=== PATIENT | male | born 1960 | race Caucasian/White ===

== ENCOUNTER 2018-10-08 14:09 | Emergency (ER) | payer OTHER ==
[~2018-10-08] VITALS: Ht 185.4 cm; Wt 99.8 kg
[~2018-10-08 14:09] MED LIST: AMLODIPINE BESY10 MG PO; COZAAR50 MG PO; FLOVENT DISKUS50 MCG INH; GEMFIBROZIL600 MG PO; HARVONI 90-4001 EACH PO; KEFLEX500 MG PO; LIPITOR10 MG; LISINOPRIL20 MG PO; METFORMIN HCL850 MG PO; PRILOSEC OTC20 MG PO; RIBASPHERE400 MG PO; TOPROL XL50 MG PO; ZANTAC150 MG PO; ZOFRAN4 MG PO; ZYRTEC10 MG PO
[2018-10-08] MEDS ORDERED: SUMATRIPTAN SUC25 MG PO (14:45)
[2018-10-08] MEDS ORDERED: ARNUITY ELLIPT50 MCG NAS (14:46)
== END 2018-10-08 17:59 | disposition short-term general hospital (02) ==
LOC: ED 14:09
DX: S06.5X9A Traumatic subdural hemorrhage with loss of consciousness of unspecified duration, initial encounter (principal); X58.XXXA Exposure to other specified factors, initial encounter; I10 Essential (primary) hypertension; E11.9 Type 2 diabetes mellitus without complications; Z87.891 Personal history of nicotine dependence; Z79.899 Other long term (current) drug therapy; Z79.84 Long term (current) use of oral hypoglycemic drugs
CPT/HCPCS: 70450; 80053; 85025; 85610; 85730; 99285-25

== ENCOUNTER 2019-12-16 11:42 | Emergency (ER) | payer OTHER ==
[~2019-12-16] VITALS: Ht 185.4 cm; Wt 99.8 kg
--- OUTSIDE RECORDS SUMMARY | ~2019-12-16 | XMS | Clinical Summary ---
Demographics + + + | Address | [address] | | | [place] [address] | + + + | Home Phone | | + + + | Preferred Language | Unknown | + + + | Marital Status | Single | + + + | [employer] Affiliation | Unknown | + + + | Race | Unknown | + + + | Ethnic Group | Unknown | + + + Author + + + | Author | [facility] (Historical as of | | | 03-30-19) | + + + | Organization | [facility] (Historical as of | | | 03-30-19) | + + + | Address | Unknown | + + + | Phone | Unavailable | + + + Support + + +---------+ + | Name | Relationship | Address | Phone | + + +---------+ + | No,Contact | ECON | Unknown | | + + +---------+ + Care Team Providers + +------+ + | Care Mammalogy Teacher Name | Role | Phone | + +------+ + PP | Unavailable | + +------+ + Allergies + + + + + + | Active Allergy | Reactions | Severity | Noted | Comments | | | | | Date | | + + + + + + | Other-Food | Itching | Medium | 10/10/19 | | | | | | 19 | | + + + + + + | Nutritional | Itching | Medium | 10/08/19 | Pt reports "itchy | | Supplements | | | 19 | mouth" to raw fruits | | | | | | and vegetables. Per | | | | | | pt he can eat | | | | | | cooked fruits and | | | | | | vegetables. He is | | | | | | not truly allergic | | | | | | to fresh ones, they | | | | | | just make his mouth | | | | | | itchy and he | | | | | | develops mouth | | | | | | sores. | + + + + + + Current Medications + + +--------+---------+------+------+-------+ | Prescription | Sig. | Disp. | Refills | Star | End | Statu | | | | | | t | Date | s | | | | | | Date | | | + + +--------+---------+------+------+-------+ | amLODIPine | Take 10 mg by mouth | | | | | Activ | | (NORVASC) 10 MG | daily. | | | | | e | | tablet | | | | | | | + + +--------+---------+------+------+-------+ | cetirizine | Take 10 mg by mouth | | | | | Activ | | (ZYRTEC) 10 MG | daily. | | | | | e | | tablet | | | | | | | + + +--------+---------+------+------+-------+ | losartan (COZAAR) | Take 50 mg by mouth | | | | | Activ | | 50 MG tablet | daily. | | | | | e | + + +--------+---------+------+------+-------+ | metFORMIN | Take 850 mg by mouth | | | | | Activ | | (GLUCOPHAGE) 850 MG | 2 (two) times daily | | | | | e | | tablet | with meals. | | | | | | + + +--------+---------+------+------+-------+ | ranitidine | Take 150 mg by mouth | | | | | Activ | | (ZANTAC) 150 MG | 2 (two) times | | | | | e | | tablet | daily. | | | | | | + + +--------+---------+------+------+-------+ | SUMAtriptan | Take 25 mg by mouth | | | | | Activ | | (IMITREX) 25 MG | as needed for | | | | | e | | tablet | Migraine. | | | | | | + + +--------+---------+------+------+-------+ | fluticasone | 1 spray by Each Nare | | | | | Activ | | (FLONASE) 50 MCG/ACT | route daily. | | | | | e | | nasal | | | | | | | + + +--------+---------+------+------+-------+ | omeprazole | Take 20 mg by mouth | | | | | Activ | | (PRILOSEC) 20 MG | every morning before | | | | | e | | capsule | breakfast. | | | | | | + + +--------+---------+------+------+-------+ | atorvastatin | Take 10 mg by mouth | | | | | Activ | | (LIPITOR) 10 MG | nightly. | | | | | e | | tablet | | | | | | | + + +--------+---------+------+------+-------+ | hydrALAZINE | Take 1 tablet by | 120 | 0 | 03/0 | | Activ | | (APRESOLINE) 25 MG | mouth every 6 (six) | tablet | | 1/20 | | e | | tablet | hours. | | | 19 | | | + + +--------+---------+------+------+-------+ | metoprolol | Take 1 tablet by | 60 | 0 | 03/0 | | Activ | | (LOPRESSOR) 25 MG | mouth 2 (two) times | tablet | | 1/20 | | e | | tablet | daily. | | | 19 | | | + + +--------+---------+------+------+-------+ Active Problems + + + | Problem | Noted Date | + + + | S/P subdural hematoma evacuation | 11/02/2018 | + + + | Type 2 diabetes mellitus (HCC) | 10/08/2018 | + + + | Hypertension, benign renovascular | 10/08/2018 | + + + | Other hyperlipidemia | 10/08/2018 | + + + | CKD (chronic kidney disease) stage 3, GFR 30-59 ml/min (HCC) | 10/08/2018 | + + + Resolved Problems + + + + | Problem | Noted | Resolved | | | Date | Date | + + + + | Traumatic subdural hematoma without loss of consciousness (HCC) | 10/08/19 | | | | 19 | 9 | + + + + Immunizations + + + + | Name | Dates Previously Given | Next Due | + + + + | Pneumococcal | 10/09/2018 | | | Polysaccharide | | | | 23-valent | | | + + + + Social History + +-------+ +--------+ + | Tobacco Use | Types | Packs/Day | Years | Date | | | | | Used | | + +-------+ +--------+ + | Former Smoker | | | | Quit: 10/08/2008 | + +-------+ +--------+ + + +---+---+---+ | Smokeless Tobacco: | | | | | Never Used | | | | + +---+---+---+ + + + | Sex Assigned at | Date Recorded | | | | + + + | Not on file | | + + + Last Filed Vital Signs + + + + | Vital Sign | Reading | Time Taken | + + + + | Blood Pressure | 133/79 | 11/02/2018 11:13 AM PDT | + + + + | Pulse | 57 | 11/02/2018 11:13 AM PDT | + + + + | Temperature | 36.6 C (97.9 F) | 10/12/2018 8:22 AM PST | + + + + | Respiratory Rate | 16 | 10/12/2018 11:51 AM PST | + + + + | Oxygen Saturation | 95% | 10/12/2018 11:51 AM PST | + + + + | Inhaled Oxygen | - | - | | Concentration | | | + + + + | Weight | 98.9 kg (218 lb) | 11/02/2018 11:13 AM PDT | + + + + | Height | 185.4 cm (6' 1") | 11/02/2018 11:13 AM PDT | + + + + | Body Mass Index | 28.76 | 11/02/2018 11:13 AM PDT | + + + + Plan of Treatment + + + + + | Health Maintenance | Due Date | Last Done | Comments | + + + + + | Diabetic Eye Exam | | | | | | 9 | | | + + + + + | Diabetic Foot Exam | | | | | | 9 | | | + + + + + | Hemoglobin A1c | | | | | | 9 | | | + + + + + | Microalbumin | | | | | Screening | 9 | | | + + + + + | Vaccine: | | | | | Dtap/Tdap/Td (1 - | 8 | | | | Tdap) | | | | + + + + + | Colon Cancer | | | | | Screening | 9 | | | | (Colonoscopy) | | | | + + + + + | Vaccine: Zoster (1 | | | | | of 2) | 9 | | | + + + + + | Vaccine: Influenza | | | | | (Season Ended) | 0 | | | + + + + + | Vaccine: | Completed | 10/09/2018 | | | Pneumococcal 19-64 | | | | | (PPSV23 only) Medium | | | | | Risk | | | | + + + + + Results Not on filefrom Last 3 Months Insurance + +--------+ +------+-------+ + | Payer | Benefi | Subscriber | Type | Phone | Address | | | t Plan | ID | | | | | | / | | | | | | | Group | | | | | + +--------+ +------+-------+ + | [employer] | [employer] | [id number] | | | | | | RECTIO | | | | | | | NAL | | | | | | | HEALTH | | | | | | | | | | | | | | PARTNE | | | | | | | RS | | | | | + +--------+ +------+-------+ + | MEDICAID | MEDICA | [id number] | | | [address] | | | [place] | | | | [place] | | | [place] | | | | [id number] | + +--------+ +------+-------+ + + +--------+ +--------+ + + | Guarantor Name | Accoun | Relation to | Date | Phone | Billing Address | | | t Type | Patient | of | | | | | | | | | | + +--------+ +--------+ + + | [employer],E[facility]ERN | Correc | Other | [birth year] | Home: | [address] | | [place] | tional | | [phone] | [phone] [place], [place] [address] | | | | | | [phone] | | | | Facili | | | | | | | ty | | | | | + +--------+ +--------+ + +
--- OUTSIDE RECORDS SUMMARY | ~2019-12-16 | XMS | Encounter Summary ---
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 1.210.This eGFR is | | | | | | calculated using the | | | | | | MDRD IDMS traceable | | | | | | equation.Testing | | | | | | performed at [facility], [address] | | | | | | [facility], | | | | | | [place] [address] | | | | + + + + + + + + | Specimen | + + | Blood specimen | | (specimen) | + + + +---------+ + + | Performing | Address | City/State/Zipcode | Phone Number | | Organization | | | | + +---------+ + + | EXTERNAL LAB | | | | + +---------+ + + POC Glucose (10/11/2018 10:33 PM PST) + + + + + + | Component | Value | Ref Range | Performed | Pathologist | | | | | At | Signature | + + + + + + | Glucose, | 176 (H)Comment: Testing | 65 - 99 mg/dL | EXTERNAL | | | Fingerstick | performed at [facility];[address] | | LAB | | | | [address];[place] | | | | | | [address] | | | | + + + + + + + + | Specimen | + + | | + + + +---------+ + + | Performing | Address | City/State/Zipcode | Phone Number | | Organization | | | | + +---------+ + + | EXTERNAL LAB | | | | + +---------+ + + CT Head wo Contrast (10/11/2018 10:10 PM PST) + + | Specimen | + + | | + + + + + | Impressions | Performed At | + + + | 1. If interval removal of the right subdural drain 2. Persistent | | | pneumo cephalus and subdural collections over the right cerebrum | | | appear relatively unchanged despite the slightly smaller right to | | | left midline shift. 3. Interval decrease in size of the left frontal | | | subdural hematoma. Signed by: Mike Cruz Sign Date/Time: | | | 10/11/2018 10:34 PM | | + + + + + + | Narrative | Performed At | + + + | CT HEAD WITHOUT CONTRAST CLINICAL INFORMATION: Subdural hematoma. | | | COMPARISON: Similar study at 1326 hours earlier today PROCEDURE: | | | Axial images were obtained through the head without IV contrast. | | | Multiplanar reformations were obtained from the acquisition data. At | | | least one of the following CT dose optimization techniques were used: | | | Automated exposure control; Adjustment of mA and/or kV according to | | | patient size; Use of iterative reconstruction technique. FINDINGS: | | | Brain: Again seen is the pneumocephalus and subdural collection over | | | the right cerebrum appears unchanged in size. 3.4 mm of right to | | | left midline shift while this is slightly less than earlier, the | | | small amount of interval changes within the range of air for | | | measurement technique. Small left frontal subdural hematoma = 5 mm | | | in thickness. Previously = 9 mm. No new intracranial hemorrhage, | | | cerebral edema. Interval removal of the right subdural drain | | | previously seen. Ventricles and extra-axial fluid spaces: Normal. | | | Paranasal sinuses and mastoid air cells: Normal. Calvarium and | | | extracranial soft tissues: Postsurgical changes of the right frontal | | | calvarium. Orbits: Imaged portions of the orbits are normal. | | + + + + + | Procedure Note | + + | Seng, Rad Conversion - 03/26/2019 11:[address] HEAD WITHOUT CONTRAST | | CLINICAL INFORMATION: | | Subdural hematoma. | | COMPARISON: | | Similar study at 1326 hours earlier today | | PROCEDURE: | | Axial images were obtained through the head without IV contrast. | | Multiplanar reformations were obtained from the acquisition data. | | At least one of the following CT dose optimization techniques were | | used: Automated exposure control; Adjustment of mA and/or kV according | | to patient size; Use of iterative reconstruction technique. | | FINDINGS: | | Brain: Again seen is the pneumocephalus and subdural collection over | | the right cerebrum appears unchanged in size. 3.4 mm of right to left | | midline shift while this is slightly less than earlier, the small | | amount of interval changes within the range of air for measurement | | technique. Small left frontal subdural hematoma = 5 mm in thickness. | | Previously = 9 mm. No new intracranial hemorrhage, cerebral edema. | | Interval removal of the right subdural drain previously seen. | | Ventricles and extra-axial fluid spaces: Normal. | | Paranasal sinuses and mastoid air cells: Normal. | | Calvarium and extracranial soft tissues: Postsurgical changes of the | | right frontal calvarium. | | Orbits: Imaged portions of the orbits are normal. | | IMPRESSION: | | 1. If interval removal of the right subdural drain | | 2. Persistent pneumo cephalus and subdural collections over the right | | cerebrum appear relatively unchanged despite the slightly smaller right | | to left midline shift. | | 3. Interval decrease in size of the left frontal subdural hematoma. | | Signed by: Mike Cruz | | Sign Date/Time: 10/11/2018 10:34 PM | + + POC Glucose (10/11/2018 4:59 PM PST) + + + + + + | Component | Value | Ref Range | Performed | Pathologist | | | | | At | Signature | + + + + + + | Glucose, | 107 (H)Comment: Testing | 65 - 99 mg/dL | EXTERNAL | | | Fingerstick | performed at [facility];[address] | | LAB | | | | [address];[place], [place] | | | | | | [address] | | | | + + + + + + + + | Specimen | + + | | + + + +---------+ + + | Performing | Address | City/State/Zipcode | Phone Number | | Organization | | | | + +---------+ + + | EXTERNAL LAB | | | | + +---------+ + + CT Head wo Contrast (10/11/2018 1:33 PM PST) + + | Specimen | + + | | + + + + + | Impressions | Performed At | + + + | 1. The right subdural drain remains in place. Slight reduction in | | | size of a right subdural hematoma and pneumocephalus. 2. Reduction | | | of right to left midline shift. Signed by: Renaldo Arceo | | | Date/Time: 10/11/2018 2:25 PM | | + + + + + + | Narrative | Performed At | + + + | CT HEAD WITHOUT CONTRAST CLINICAL INFORMATION: Recent procedure | | | about two days ago at bedside. COMPARISON: CT HEAD WO CONTRAST | | | (10/10/2018); CT HEAD WO CONTRAST (10/09/2018); CT HEAD WO CONTRAST | | | (10/08/2018); PROCEDURE: Axial images were obtained through the head | | | without IV contrast. Multiplanar reformations were obtained from the | | | acquisition data. At least one of the following CT dose optimization | | | techniques were used: Automated exposure control; Adjustment of mA | | | and/or kV according to patient size; Use of iterative reconstruction | | | technique. FINDINGS: Brain: There is 4 mm right to left midline | | | shift which is reduced from prior study. No uncal or tonsillar | | | herniation is present. There are no new areas of decreased | | | hodge-white differentiation. Ventricles and extra-axial fluid spaces: | | | Pneumocephalus is seen along the right frontal lobe measuring 1.3 cm | | | image 16 series 2, decreased from prior study. The subdural | | | drainage catheter remains in position. The left subdural hematoma is | | | stable measuring 9 mm image 23 series 2. Paranasal sinuses and | | | mastoid air cells: Normal. Calvarium and extracranial soft tissues: | | | Normal. Orbits: Imaged portions of the orbits are normal. | | + + + + + | Procedure Note | + + | Seng, Rad Conversion - 03/26/2019 11:[address] HEAD WITHOUT CONTRAST | | CLINICAL INFORMATION: | | Recent procedure about two days ago at bedside. | | COMPARISON: | | CT HEAD WO CONTRAST (10/10/2018); CT HEAD WO CONTRAST (10/09/2018); CT | | HEAD WO CONTRAST (10/08/2018); | | PROCEDURE: | | Axial images were obtained through the head without IV contrast. | | Multiplanar reformations were obtained from the acquisition data. | | At least one of the following CT dose optimization techniques were | | used: Automated exposure control; Adjustment of mA and/or kV according | | to patient size; Use of iterative reconstruction technique. | | FINDINGS: | | Brain: There is 4 mm right to left midline shift which is reduced from | | prior study. No uncal or tonsillar herniation is present. There are | | no new areas of decreased hodge-white differentiation. | | Ventricles and extra-axial fluid spaces: Pneumocephalus is seen along | | the right frontal lobe measuring 1.3 cm image 16 series 2, decreased | | from prior study. The subdural drainage catheter remains in position. | | The left subdural hematoma is stable measuring 9 mm image 23 series 2. | | Paranasal sinuses and mastoid air cells: Normal. | | Calvarium and extracranial soft tissues: Normal. | | Orbits: Imaged portions of the orbits are normal. | | IMPRESSION: | | 1. The right subdural drain remains in place. Slight reduction in size | | of a right subdural hematoma and pneumocephalus. | | 2. Reduction of right to left midline shift. | | Signed by: Renaldo Arceo | | Sign Date/Time: 10/11/2018 2:25 PM | + + POC Glucose (10/11/2018 11:37 AM PST) + + + + + + | Component | Value | Ref Range | Performed | Pathologist | | | | | At | Signature | + + + + + + | Glucose, | 96Comment: Testing | 65 - 99 mg/dL | EXTERNAL | | | Fingerstick | performed at [facility];[address] | | LAB | | | | [address];[place] | | | | | | [address] | | | | + + + + + + + + | Specimen | + + | | + + + +---------+ + + | Performing | Address | City/State/Zipcode | Phone Number | | Organization | | | | + +---------+ + + | EXTERNAL LAB | | | | + +---------+ + + POC Glucose (10/11/2018 5:35 AM PST) + + + + + + | Component | Value | Ref Range | Performed | Pathologist | | | | | At | Signature | + + + + + + | Glucose, | 130 (H)Comment: Testing | 65 - 99 mg/dL | EXTERNAL | | | Fingerstick | performed at [facility];[address] | | LAB | | | | [address];[place], [place] | | | | | | [address] | | | | + + + + + + + + | Specimen | + + | | + + + +---------+ + + | Performing | Address | City/State/Zipcode | Phone Number | | Organization | | | | + +---------+ + + | EXTERNAL LAB | | | | + +---------+ + + External Lab: CBC (10/11/2018 4:18 AM PST) + + + + + + | Component | Value | Ref Range | Performed | Pathologist | | | | | At | Signature | + + + + + + | WBC | 6.41 | 3.80 - 11.00 | EXTERNAL | | | | | K/uL | LAB | | + + + + + + | Red Blood | 3.41 (L) | 4.20 - 5.70 | EXTERNAL | | | Cells | | M/uL | LAB | | | Counted | | | | | + + + + + + | Hemoglobin | 11.1 (L) | 13.2 - 17.0 | EXTERNAL | | | | | g/dL | LAB | | + + + + + + | Hematocrit, | 32.1 (L) | 39.0 - 50.0 % | EXTERNAL | | | POC | | | LAB | | + + + + + + | MCV | 94.0 | 80.0 - 100.0 fl | EXTERNAL | | | | | | LAB | | + + + + + + | MCH | 32.6 | 27.0 - 34.0 pg | EXTERNAL | | | | | | LAB | | + + + + + + | MCHC | 34.7 | 32.0 - 35.5 | EXTERNAL | | | | | g/dL | LAB | | + + + + + + | RDW-CV | 45.9 | 37 - 53 fl | EXTERNAL | | | | | | LAB | | + + + + + + | Platelet | 180 | 150 - 400 K/uL | EXTERNAL | | | Count | | | LAB | | | Plasma | | | | | + + + + + + | MPV | 8.3 | fl | EXTERNAL | | | | | | LAB | | + + + + + + | Differentia | AUTOMATED | | EXTERNAL | | | l Type | | | LAB | | + + + + + + | % Segmented | 68.96 | % | EXTERNAL | | | | | | LAB | | | Neutrophils | | | | | + + + + + + | % | 18.04 | % | EXTERNAL | | | Lymphocytes | | | LAB | | + + + + + + | % Monocytes | 7.89 | % | EXTERNAL | | | | | | LAB | | + + + + + + | % | 4.68 | % | EXTERNAL | | | Eosinophils | | | LAB | | + + + + + + | % Basophils | 0.43 | % | EXTERNAL | | | | | | LAB | | + + + + + + | Absolute | 4.42 | 1.90 - 7.40 | EXTERNAL | | | Segmented | | K/uL | LAB | | | Neutrophils | | | | | + + + + + + | Absolute | 1.16 | 1.00 - 3.90 | EXTERNAL | | | Lymphocytes | | K/uL | LAB | | + + + + + + | Absolute | 0.51 | 0.00 - 0.80 | EXTERNAL | | | Monocytes | | K/uL | LAB | | + + + + + + | Absolute | 0.30 | 0.00 - 0.50 | EXTERNAL | | | Eosinophils | | K/uL | LAB | | + + + + + + | Absolute | 0.03Comment: Testing | 0.00 - 0.10 | EXTERNAL | | | Basophils | performed at [facility], [address] | [address] | LAB | | | | [address], | | | | | | [place] [address] | | | | + + + + + + + + | Specimen | + + | Blood specimen | | (specimen) | + + + +---------+ + + | Performing | Address | City/State/Zipcode | Phone Number | | Organization | | | | + +---------+ + + | EXTERNAL LAB | | | | + +---------+ + + Phosphorus (10/11/2018 4:18 AM PST) + + + + + + | Component | Value | Ref Range | Performed | Pathologist | | | | | At | Signature | + + + + + + | PHOSPHORUS | 4.7Comment: Testing | 2.3 - 4.8 mg/dL | EXTERNAL | | | | performed at [facility];[address] | | LAB | | | | [address];[place] | | | | | | [address] | | | | + + + + + + + + | Specimen | + + | Blood specimen | | (specimen) | + + + +---------+ + + | Performing | Address | City/State/Zipcode | Phone Number | | Organization | | | | + +---------+ + + | EXTERNAL LAB | | | | + +---------+ + + Magnesium (10/11/2018 4:18 AM PST) + + + + + + | Component | Value | Ref Range | Performed | Pathologist | | | | | At | Signature | + + + + + + | Magnesium | 2.1Comment: Testing | 1.7 - 2.4 mg/dL | EXTERNAL | | | | performed at [facility];[address] | | LAB | | | | [address];[place], [place] | | | | | | [address] | | | | + + + + + + + + | Specimen | + + | Blood specimen | | (specimen) | + + + +---------+ + + | Performing | Address | City/State/Zipcode | Phone Number | | Organization | | | | + +---------+ + + | EXTERNAL LAB | | | | + +---------+ + + Basic Metabolic Panel (10/11/2018 4:18 AM PST) + + + + + + | Component | Value | Ref Range | Performed | Pathologist | | | | | At | Signature | + + + + + + | Na | 140 | 135 - 145 | EXTERNAL | | | | | mmol/L | LAB | | + + + + + + | K | 4.1 | 3.5 - 4.9 | EXTERNAL | | | | | mmol/L | LAB | | + + + + + + | Cl | 107 | 99 - 109 mmol/L | EXTERNAL | | | | | | LAB | | + + + + + + | CO2 | 24 | 23 - 32 mmol/L | EXTERNAL | | | | | | LAB | | + + + + + + | Anion Gap | 13 | 5 - 20 mmol/L | EXTERNAL | | | | | | LAB | | + + + + + + | Glucose, | 122 (H) | 65 - 99 mg/dL | EXTERNAL | | | Fasting | | | LAB | | + + + + + + | BUN | 45 (H) | 8 - 25 mg/dL | EXTERNAL | | | | | | LAB | | + + + + + + | Creatinine | 2.6 (H) | 0.70 - 1.30 | EXTERNAL | | | | | mg/dL | LAB | | + + + + + + | BUN/Creatin | 17 | | EXTERNAL | | | ine Ratio | | | LAB | | + + + + + + | Calcium | 9.8 | 8.5 - 10.5 | EXTERNAL | | | | | mg/dL | LAB | | + + + + + + | Estimated | 25 (L)Comment: GFR <60: | mL/min/1.73m2 | EXTERNAL | | | GFR | CHRONIC KIDNEY DISEASE, | | LAB | | | | IF FOUND OVER A 3 MONTH | | | | | | PERIOD.GFR <15: KIDNEY | | | | | | FAILURE.FOR | | | | | | AMERICANS, MULTIPLY THE | | | | | | CALCULATED GFR BY | | | | | | 1.210.This eGFR is | | | | | | calculated using the | | | | | | MDRD IDMS traceable | | | | | | equation.Testing | | | | | | performed at [facility], [address] | | | | | | [address], | | | | | | [place] [address] | | | | + + + + + + + + | Specimen | + + | Blood specimen | | (specimen) | + + + +---------+ + + | Performing | Address | City/State/Zipcode | Phone Number | | Organization | | | | + +---------+ + + | EXTERNAL LAB | | | | + +---------+ + + POC Glucose (10/11/2018 12:15 AM PST) + + + + + + | Component | Value | Ref Range | Performed | Pathologist | | | | | At | Signature | + + + + + + | Glucose, | 108 (H)Comment: Testing | 65 - 99 mg/dL | EXTERNAL | | | Fingerstick | performed at [facility];[address] | LAB | | | [address];[place], [place] | | | | | | [address] | | | | + + + + + + + + | Specimen | + + | | + + + +---------+ + + | Performing | Address | City/State/Zipcode | Phone Number | | Organization | | | | + +---------+ + + | EXTERNAL LAB | | | | + +---------+ + + POC Glucose (10/10/2018 5:10 PM PST) + + + + + + | Component | Value | Ref Range | Performed | Pathologist | | | | | At | Signature | + + + + + + | Glucose, | 120 (H)Comment: Testing | 65 - 99 mg/dL | EXTERNAL | | | Fingerstick | performed at [facility];[address] | | LAB | | | | [address];[place] | | | | | | [address] | | | | + + + + + + + + | Specimen | + + | | + + + +---------+ + + | Performing | Address | City/State/Zipcode | Phone Number | | Organization | | | | + +---------+ + + | EXTERNAL LAB | | | | + +---------+ + + POC Glucose (10/10/2018 12:00 PM PST) + + + + + + | Component | Value | Ref Range | Performed | Pathologist | | | | | At | Signature | + + + + + + | Glucose, | 106 (H)Comment: Testing | 65 - 99 mg/dL | EXTERNAL | | | Fingerstick | performed at [facility];[address] | | LAB | | | | [address];[place] | | | | | | [address] | | | | + + + + + + + + | Specimen | + + | | + + + +---------+ + + | Performing | Address | City/State/Zipcode | Phone Number | | Organization | | | | + +---------+ + + | EXTERNAL LAB | | | | + +---------+ + + CT Head wo Contrast (10/10/2018 9:09 AM PST) + + | Specimen | + + | | + + + + + | Impressions | Performed At | + + + | 1. Status post placement of a right-sided subdural drain. Expected | | | pneumocephalus is seen. The thickness of the subdural collection | | | is slightly reduced from prior study. 2. Similar right to left | | | midline shift from prior study. Signed by: Renaldo Arceo Sign | | | Date/Time: 10/10/2018 9:23 AM | | + + + + + + | Narrative | Performed At | + + + | CT HEAD WITHOUT CONTRAST CLINICAL INFORMATION: Subdural hematoma. | | | COMPARISON: CT HEAD WO CONTRAST (10/09/2018); CT HEAD WO CONTRAST | | | (10/08/2018); CT HEAD WO CONTRAST (10/08/2018); PROCEDURE: Axial | | | images were obtained through the head without IV contrast. | | | Multiplanar reformations were obtained from the acquisition data. At | | | least one of the following CT dose optimization techniques were used: | | | Automated exposure control; Adjustment of mA and/or kV according to | | | patient size; Use of iterative reconstruction technique. FINDINGS: | | | Brain: There is no uncal or tonsillar herniation present. There is 6 | | | mm right to left midline shift which is similar to prior study. | | | Subtle decreased attenuation of the subcortical white matter of the | | | left frontal lobe is unchanged. Ventricles and extra-axial fluid | | | spaces: The ventricular system is normal in size. Pneumocephalus is | | | seen secondary to recent in vacuo a galloway of the right subdural | | | collection. The right-sided subdural collection measures 1.6 cm in | | | thickness image 16 series 2 which is decreased from prior study. A | | | left frontal subdural collection measures 6 mm on image 18 series 2, | | | stable. The left subdural collection measured higher up measures 9 | | | mm on image 23 series 2, stable. Paranasal sinuses and mastoid air | | | cells: There is minimal fluid along the left mastoid air cells. | | | Calvarium and extracranial soft tissues: Normal. Orbits: Imaged | | | portions of the orbits are normal. | | + + + + + | Procedure Note | + + | Seng, Rad Conversion - 03/26/2019 11:[address] HEAD WITHOUT CONTRAST | | CLINICAL INFORMATION: | | Subdural hematoma. | | COMPARISON: | | CT HEAD WO CONTRAST (10/09/2018); CT HEAD WO CONTRAST (10/08/2018); CT | | HEAD WO CONTRAST (10/08/2018); | | PROCEDURE: | | Axial images were obtained through the head without IV contrast. | | Multiplanar reformations were obtained from the acquisition data. | | At least one of the following CT dose optimization techniques were | | used: Automated exposure control; Adjustment of mA and/or kV according | | to patient size; Use of iterative reconstruction technique. | | FINDINGS: | | Brain: There is no uncal or tonsillar herniation present. There is 6 | | mm right to left midline shift which is similar to prior study. Subtle | | decreased attenuation of the subcortical white matter of the left | | frontal lobe is unchanged. | | Ventricles and extra-axial fluid spaces: The ventricular system is | | normal in size. Pneumocephalus is seen secondary to recent in vacuo a | | galloway of the right subdural collection. The right-sided subdural | | collection measures 1.6 cm in thickness image 16 series 2 which is | | decreased from prior study. A left frontal subdural collection | | measures 6 mm on image 18 series 2, stable. The left subdural | | collection measured higher up measures 9 mm on image 23 series 2, | | stable. | | Paranasal sinuses and mastoid air cells: There is minimal fluid along | | the left mastoid air cells. | | Calvarium and extracranial soft tissues: Normal. | | Orbits: Imaged portions of the orbits are normal. | | IMPRESSION: | | 1. Status post placement of a right-sided subdural drain. Expected | | pneumocephalus is seen. The thickness of the subdural collection is | | slightly reduced from prior study. | | 2. Similar right to left midline shift from prior study. | | Signed by: Renaldo Arceo | | Sign Date/Time: 10/10/2018 9:23 AM | + + POC Glucose (10/10/2018 5:42 AM PST) + + + + + + | Component | Value | Ref Range | Performed | Pathologist | | | | | At | Signature | + + + + + + | Glucose, | 139 (H)Comment: Testing | 65 - 99 mg/dL | EXTERNAL | | | Fingerstick | performed at [facility];[address] | | LAB | | | | [address];[place] | | | | | | [address] | | | | + + + + + + + + | Specimen | + + | | + + + +---------+ + + | Performing | Address | City/State/Zipcode | Phone Number | | Organization | | | | + +---------+ + + | EXTERNAL LAB | | | | + +---------+ + + External Lab: CBC (10/10/2018 4:02 AM PST) + + + + + + | Component | Value | Ref Range | Performed | Pathologist | | | | | At | Signature | + + + + + + | WBC | 8.35 | 3.80 - 11.00 | EXTERNAL | | | | | K/uL | LAB | | + + + + + + | Red Blood | 3.54 (L) | 4.20 - 5.70 | EXTERNAL | | | Cells | | M/uL | LAB | | | Counted | | | | | + + + + + + | Hemoglobin | 11.5 (L) | 13.2 - 17.0 | EXTERNAL | | | | | g/dL | LAB | | + + + + + + | Hematocrit, | 33.4 (L) | 39.0 - 50.0 % | EXTERNAL | | | POC | | | LAB | | + + + + + + | MCV | 94.3 | 80.0 - 100.0 fl | EXTERNAL | | | | | | LAB | | + + + + + + | MCH | 32.5 | 27.0 - 34.0 pg | EXTERNAL | | | | | | LAB | | + + + + + + | MCHC | 34.4 | 32.0 - 35.5 | EXTERNAL | | | | | g/dL | LAB | | + + + + + + | RDW-CV | 45.1 | 37 - 53 fl | EXTERNAL | | | | | | LAB | | + + + + + + | Platelet | 183 | 150 - 400 K/uL | EXTERNAL | | | Count | | | LAB | | | Plasma | | | | | + + + + + + | MPV | 8.3 | fl | EXTERNAL | | | | | | LAB | | + + + + + + | Differentia | AUTOMATED | | EXTERNAL | | | l Type | | | LAB | | + + + + + + | % Segmented | 76.51 | % | EXTERNAL | | | | | | LAB | | | Neutrophils | | | | | + + + + + + | % | 13.23 | % | EXTERNAL | | | Lymphocytes | | | LAB | | + + + + + + | % Monocytes | 7.00 | % | EXTERNAL | | | | | | LAB | | + + + + + + | % | 2.84 | % | EXTERNAL | | | Eosinophils | | | LAB | | + + + + + + | % Basophils | 0.42 | % | EXTERNAL | | | | | | LAB | | + + + + + + | Absolute | 6.39 | 1.90 - 7.40 | EXTERNAL | | | Segmented | | K/uL | LAB | | | Neutrophils | | | | | + + + + + + | Absolute | 1.10 | 1.00 - 3.90 | EXTERNAL | | | Lymphocytes | | K/uL | LAB | | + + + + + + | Absolute | 0.58 | 0.00 - 0.80 | EXTERNAL | | | Monocytes | | K/uL | LAB | | + + + + + + | Absolute | 0.24 | 0.00 - 0.50 | EXTERNAL | | | Eosinophils | | K/uL | LAB | | + + + + + + | Absolute | 0.04Comment: Testing | 0.00 - 0.10 | EXTERNAL | | | Basophils | performed at [facility], [address] | K/u[address] | LAB | | | | [address], | | | | | | [place] [address] | | | | + + + + + + + + | Specimen | + + | Blood specimen | | (specimen) | + + + +---------+ + + | Performing | Address | City/State/Zipcode | Phone Number | | Organization | | | | + +---------+ + + | EXTERNAL LAB | | | | + +---------+ + + Phosphorus (10/10/2018 4:02 AM PST) + + + + + + | Component | Value | Ref Range | Performed | Pathologist | | | | | At | Signature | + + + + + + | PHOSPHORUS | 3.9Comment: Testing | 2.3 - 4.8 mg/dL | EXTERNAL | | | | performed at [facility] | | LAB | | | | [address];[place], [place] | | | | | | [address] | | | | + + + + + + + + | Specimen | + + | Blood specimen | | (specimen) | + + + +---------+ + + | Performing | Address | City/State/Zipcode | Phone Number | | Organization | | | | + +---------+ + + | EXTERNAL LAB | | | | + +---------+ + + Magnesium (10/10/2018 4:02 AM PST) + + + + + + | Component | Value | Ref Range | Performed | Pathologist | | | | | At | Signature | + + + + + + | Magnesium | 2.2Comment: Testing | 1.7 - 2.4 mg/dL | EXTERNAL | | | | performed at [facility];[address] | | LAB | | | | [address];[place], [place] | | | | | | [address] | | | | + + + + + + + + | Specimen | + + | Blood specimen | | (specimen) | + + + +---------+ + + | Performing | Address | City/State/Zipcode | Phone Number | | Organization | | | | + +---------+ + + | EXTERNAL LAB | | | | + +---------+ + + Basic Metabolic Panel (10/10/2018 4:02 AM PST) + + + + + + | Component | Value | Ref Range |

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
--- OUTSIDE RECORDS SUMMARY | ~2019-12-16 | XMS | Encounter Summary ---
Demographics + + + | Address | [address] | | | [place] [address] | + + + | Home Phone | | + + + | Preferred Language | Unknown | + + + | Marital Status | Single | + + + | Restorationist Affiliation | Unknown | + + + | Race | Unknown | + + + | Ethnic Group | Unknown | + + + Author + + + | Author | [facility] | | | and [place] | + + + | Organization | [facility] | | | and [...] Team Providers + +------+ + | Care Cloth Neutralizer Name | Role | Phone | + +------+ + PCP | Unavailable | + +------+ + Encounter Details +--------+ + + + + | Date | Type | Department | Care Team | Description | +--------+ + + + + | 10/08/ | Hospital | [facility] | Conversion | Diagnosis unknown | | 2019 | Encounter | CONVERSION DEP [address] | Transaction, | | | | | [address] | Provider Unknown | | | | | [place] | | | | | | [phone] | (Fax) | | | | | [phone] | | | +--------+ + + + [...] + + documented as of this encounter Medications at Time of Discharge + + + +---------+ + + | Medication | Sig | Dispensed | Refills | Start | End Date | | | | | | Date | | + + + +---------+ + + | amLODIPine | Take 10 mg by mouth | | 0 | 10/08/ | | | (NORVASC) 10 MG | daily. | | | 19 | | | tablet | | | | | | + + + +---------+ + + | atorvaSTATin | Take 10 mg by mouth | | 0 | 02/25/20 | | | (LIPITOR) 10 mg | nightly. | | | 19 | | | tablet | | | | | | + + + +---------+ + + | cetirizine | Take 10 mg by mouth | | 0 | /25/20 | | | (ZYRTEC) 10 mg | daily. | | | 19 | | | tablet | | | | | | + + + +---------+ + + | fluticasone | 1 spray by Each Nare | | 0 | //20 | | | (FLONASE) 50 | route daily. | | | 19 | | | mcg/nasal spray | | | | | | + + + +---------+ + + | losartan (COZAAR) | Take 50 mg by mouth | | 0 | 02/25/20 | | | 50 mg tablet | daily. | | | 19 | | + + + +---------+ + + | metFORMIN | Take 850 mg by mouth | | 0 | 10/08/19 | | | (GLUCOPHAGE) 850 mg | 2 (two) times daily | | | 19 | | | tablet | with meals. | | | | | + + + +---------+ + + | omeprazole | Take 20 mg by mouth | | 0 | 10/08/19 | | | (PRILOSEC) 20 mg | every morning before | | | 19 | | | capsule | breakfast. | | | | | + + + +---------+ + + | raNITIdine | Take 150 mg by mouth | | 0 | 10/08/19 | | | (ZANTAC) 150 mg | 2 (two) times | | | 19 | | | tablet | daily. | | | | | + + + +---------+ + + | SUMAtriptan | Take 25 mg by mouth | | 0 | 10/08/19 | | | (IMITREX) 25 mg | as needed for | | | 19 | | | tablet | Migraine. | | | | | + + + +---------+ + + documented as of this encounter Plan of Treatment Not on filedocumented as of this encounter Procedures + +--------+ + + + | Procedure Name | Priori | Date/Time | Associated Diagnosis | Comments | | | ty | | | | + +--------+ + + + | CT HEAD WO CONTRAST | Routin | 10/08/2018 | | Results for this | | | e | 4:05 PM | | procedure are in the | | | | PST | | results section. | + +--------+ + + + documented in this encounter Results CT Head wo Contrast (10/08/2018 4:05 PM PST) + + | Specimen | + + | | + + + + + | Narrative | Performed At | + + + | This is a non-reportable procedure without a radiologist report and | | | is used for image storage only | | + + + + + | Procedure Note | + + | Navneet Ellsworth - 03/26/2019 11:27 PM PDT This is a non-reportable procedure | | without a radiologist report and isused for image storage only | + + documented in this encounter Visit Diagnoses + + | Diagnosis | + + | Diagnosis unknown Other unknown and unspecified cause of morbidity or mortality | + + documented in this encounter"
--- OUTSIDE RECORDS SUMMARY | ~2019-12-16 | XMS | Encounter Summary ---
Demographics + + + | Address | [address] | | | [place] [address] | + + + | Home Phone | | + + + | Preferred Language | Unknown | + + + | Marital Status | Single | + + + | Faith Affiliation | Unknown | + + + | Race | Unknown | + + + | Ethnic Group | Unknown | + + + Author + + + | Author | [facility] | | | and [place] | + + + | Organization | [facility] | | | and [...] Team Providers + +------+ + | Care Nocturnist Name | Role | Phone | + +------+ + PCP | Unavailable | + +------+ + Encounter Details +--------+ + + + + | Date | Type | Department | Care Team | Description | +--------+ + + + + | 10/08/ | Hospital | [facility] GENERIC IP | Conversion | Diagnosis unknown | | 2019 | Encounter | CONVERSION DEP 888 | Transaction, | | | | | RYAN KEITH | Provider Unknown | | | | | [place] | | | | | | [phone] | (Fax) | | | | | [phone] | | | +--------+ + + + [...] for this | | | e | 3:52 PM | | procedure are in the | | | | PST | | results section. | + +--------+ + + + documented in this encounter Results CT Head wo Contrast (10/08/2018 3:52 PM PST) + + | Specimen | [...]
--- OUTSIDE RECORDS SUMMARY | ~2019-12-16 | XMS | Clinical Summary ---
Demographics + + + | Address | [address] | | | [place] [address] | + + + | Home Phone | | + + + | Preferred Language | Unknown | + + + | Marital Status | Single | + + + | Congregation Affiliation | Unknown | + + + | Race | Unknown | + + + | Ethnic Group | Unknown | + + + Author + + + | Author | [facility] | | | and [place] | + + + | Organization | [facility] | | | [...] Team Providers + +------+ + | Care Oxygen Therapy Teacher Name | Role | Phone | + +------+ + PCP | Unavailable | + +------+ + Allergies [...] | + + + + + + Medications + + + +---------+------+------+-------+ | Medication | Sig | Dispensed | Refills | Star | End | Statu | | | | | | t | Date | s | | | | | | Date | | | + + + +---------+------+------+-------+ | amLODIPine | Take 10 mg by mouth | | 0 | 02/2 | | Activ | | (NORVASC) 10 MG | daily. | | | 5/20 | | e | | tablet | | | | 19 | | | + + + +---------+------+------+-------+ | cetirizine | Take 10 mg by mouth | | 0 | 02/2 | | Activ | | (ZYRTEC) 10 mg | daily. | | | 5/20 | | e | | tablet | | | | 19 | | | + + + +---------+------+------+-------+ | losartan (COZAAR) | Take 50 mg by mouth | | 0 | 02/2 | | Activ | | 50 mg tablet | daily. | | | 5/20 | | e | | | | | | 19 | | | + + + +---------+------+------+-------+ | metFORMIN | Take 850 mg by mouth | | 0 | 02/2 | | Activ | | (GLUCOPHAGE) 850 mg | 2 (two) times daily | | | 5/20 | | e | | tablet | with meals. | | | 19 | | | + + + +---------+------+------+-------+ | raNITIdine | Take 150 mg by mouth | | 0 | 02/2 | | Activ | | (ZANTAC) 150 mg | 2 (two) times | | | 5/20 | | e | | tablet | daily. | | | 19 | | | + + + +---------+------+------+-------+ | SUMAtriptan | Take 25 mg by mouth | | 0 | 02/2 | | Activ | | (IMITREX) 25 mg | as needed for | | | 5/20 | | e | | tablet | Migraine. | | | 19 | | | + + + +---------+------+------+-------+ | fluticasone | 1 spray by Each Nare | | 0 | 02/2 | | Activ | | (FLONASE) 50 | route daily. | | | 5/20 | | e | | mcg/nasal spray | | | | 19 | | | + + + +---------+------+------+-------+ | omeprazole | Take 20 mg by mouth | | 0 | 02/2 | | Activ | | (PRILOSEC) 20 mg | every morning before | | | 5/20 | | e | | capsule | breakfast. | | | 19 | | | + + + +---------+------+------+-------+ | atorvaSTATin | Take 10 mg by mouth | | 0 | 02/2 | | Activ | | (LIPITOR) 10 mg | nightly. | | | 5/20 | | e | | tablet | | | | 19 | | | + + + +---------+------+------+-------+ Active Problems + + + | Problem | Noted Date | + + + | S/P subdural hematoma evacuation | 11/02/2018 | + + + | Type 2 diabetes mellitus | 10/08/2018 | + + + | Hypertension, benign renovascular | 10/08/2018 | + + + | Other hyperlipidemia | 10/08/2018 | + + + | CKD (chronic kidney disease) stage 3, GFR 30-59 ml/min | 10/08/2018 | + + + Immunizations + + + + | Name | Administration Dates | Next Due | + + + + | PNEUMOCOCCAL | 10/09/2018 | | | POLYSACCHARIDE | | | | 23-VALENT (PPSV23) | | | + + + + [...] recent travel history available. | + + Last Filed Vital Signs + + + + + | Vital Sign | Reading | Time Taken | Comments | + + + + + | Blood Pressure | 133/79 | 11/02/2018 11:17 AM | | | | | PDT | | + + + + + | Pulse | 57 | 11/02/2018 11:17 AM | | | | | PDT | | + + + + + [...] | 98.9 kg (218 lb) | 11/02/2018 11:17 AM | | | | | PDT | | + + + + + | Height | 185.4 cm (6' 1") | 11/02/2018 11:17 AM | | | | | PDT | | + + + + + | Body Mass Index | 28.76 | 11/02/2018 11:17 AM | | | | | PDT | | + + + + + Plan of Treatment + + + + + | Health Maintenance | Due Date | Last Done | Comments | + + + + + | Hepatitis C | | | | | Screening | 9 | | | + + + + + | Vaccine: | | | | | Dtap/Tdap/Td (1 - | 0 | | | | Tdap) | | | | + + + + + | Diabetic Eye Exam | | | | | | 7 | | | + + + + + | Diabetic Foot Exam | | | | | | 7 | | | + + + + + | Hemoglobin A1c | | | | | Screening | 7 | | | + + + + + | Colorectal Cancer | | | | | Screening [...] | Pneumococcal 19-64 | | | | + + + + + Results Not on filefrom Last 3 Months
--- OUTSIDE RECORDS SUMMARY | ~2019-12-16 | XMS | Encounter Summary ---
Demographics + + + | Address | [address] | | | [place] [address] | + + + | Home Phone | | + + + | Preferred Language | Unknown | + + + | Marital Status | Single | + + + | Presybeterian Affiliation | Unknown | + + + | Race | Unknown | + + + | Ethnic Group | Unknown | + + + Author + + + | Author | [facility] | | | and [place] | + + + | Organization | [facility] | | | and [...] Team Providers + +------+ + | Care Weld Fitter Name | Role | Phone | + +------+ + PCP | Unavailable | + +------+ + Encounter Details +--------+ + + + + | Date | Type | Department | Care Team | Description | +--------+ + + + + | 10/08/ | Hospital | [facility] GENERIC IP | Conversion | Diagnosis unknown | | 2019 | Encounter | CONVERSION DEP 888 | Transaction, | | | | | RYAN KEITH | Provider Unknown | | | | | [place] | | | | | | [phone] | (Fax) | | | | | [phone] | | | +--------+ + + + [...]
--- OUTSIDE RECORDS SUMMARY | ~2019-12-16 | XMS | Encounter Summary ---
Demographics + + + | Address | [address] | | | [place] [address] | + + + | Home Phone | | + + + | Preferred Language | Unknown | + + + | Marital Status | Single | + + + | Episcopal Affiliation | Unknown | + + + | Race | Unknown | + + + | Ethnic Group | Unknown | + + + Author + + + | Author | [facility] | | | and [place] | + + + | Organization | [facility] | | | [...] Team Providers + +------+ + | Care Foaming Machine Operator Name | Role | Phone | + +------+ + PCP | Unavailable | + +------+ + Encounter Details +--------+ + + + + | Date | Type | Department | Care Team | Description | +--------+ + + + + | 10/08/ | Orders Only | [facility] GENERIC OP | Conversion | | | 2019 | | CONVERSION DEP 888 | Transaction, | | | | | RYAN CARL[address] | Provider Unknown | | | | | [place] | | | | | | [phone] | (Fax) | | | | | | | | +--------+ + + + [...] Not on filedocumented as of this encounter Visit Diagnoses Not on filedocumented in this encounter"
--- OUTSIDE RECORDS SUMMARY | ~2019-12-16 | XMS | Encounter Summary ---
Demographics + + + | Address | [address] | | | [place] [address] | + + + | Home Phone | | + + + | Preferred Language | Unknown | + + + | Marital Status | Single | + + + | Jew Affiliation | Unknown | + + + | Race | Unknown | + + + | Ethnic Group | Unknown | + + + Author + + + | Author | [facility] | | | and [place] | + + + | Organization | [facility] | | | [...] Team Providers + +------+ + | Care Gre Instructor Name | Role | Phone | + [...] Unknown | | | | | [place] | | | | | | [phone] | (Fax) | | | | | [...]
--- OUTSIDE RECORDS SUMMARY | ~2019-12-16 | XMS | Clinical Summary ---
Demographics + + + | Address | [address] | | | [place] [address] | + + + | Home Phone | | + + + | Preferred Language | Unknown | + + + | Marital Status | Single | + + + | Adventist Affiliation | Unknown | + + + | Race | Unknown | + + + | Ethnic Group | Unknown | + + + Author + + + | Author | [facility] | | | and [place] | + + + | Organization | [facility] | | | and [...] Team Providers + +------+ + | Care Weight Engineer Name | Role | Phone | + [...]
--- OUTSIDE RECORDS SUMMARY | ~2019-12-16 | XMS | Encounter Summary ---
Demographics + + + | Address | [address] | | | [place] [address] | + + + | Home Phone | | + + + | Preferred Language | Unknown | + + + | Marital Status | Single | + + + | Baptist Affiliation | Unknown | + + + | Race | Unknown | + + + | Ethnic Group | Unknown | + + + Author + + + | Author | [facility] | | | and [place] | + + + | Organization | [facility] | | | and [...] Team Providers + +------+ + | Care Airfreight Loading Supervisor Name | Role | Phone | + +------+ + PCP | Unavailable | + +------+ + Encounter Details +--------+ + + + + | Date | Type | Department | Care Team | Description | +--------+ + + + + | 10/12/ | Orders Only | [facility] GENER[facility] OP | Conversion | | | 2019 | | CONVERSION DEP [address] | Transaction, | | | | | RYAN [address] | Provider Unknown | | | | | [place] | | | | | | [phone] | (Fax) | | | | | [...]
--- OUTSIDE RECORDS SUMMARY | ~2019-12-16 | XMS | Encounter Summary ---
Demographics + + + | Address | [address] | | | [place] [address] | + + + | Home Phone | | + + + | Preferred Language | Unknown | + + + | Marital Status | Single | + + + | Sabianist Affiliation | Unknown | + + + | Race | Unknown | + + + | Ethnic Group | Unknown | + + + Author + + + | Author | [facility] | | | and [place] | + + + | Organization | [facility] | | | [...] Team Providers + +------+ + | Care Accounting Manager Name | Role | Phone | + [...] [place] | | | | | | [phone] | (Fax) | | | | | [...]
--- OUTSIDE RECORDS SUMMARY | ~2019-12-16 | XMS | Clinical Summary ---
Demographics + + + | Address | [address] | | | [place] [address] | + + + | Home Phone | | + + + | Preferred Language | Unknown | + + + | Marital Status | Single | + + + | Amish Affiliation | Unknown | + + + | Race | Unknown | + + + | Ethnic Group | Unknown | + + + Author + + + | Author | [facility] (Historical as of | | | 03-30-19) | + + + | Organization | [facility] (Historical as of | | | 03-30-19) [...] Team Providers + +------+ + | Care Client Service And Consulting Manager Name | Role | Phone | [...] + | [facility] | [facility] | [id number] | | | | | | RECTIO | | | | | | | NAL | | | | | | | HEALTH | | | | | | | | | | | | | | PARTNE | | | | | | | RS | | | | | + +--------+ +------+-------+ + | MEDICAID | MEDICA | [id number] | | | [address] | | | [place] | | | | [place] | | | [place] | | | | [phone] | + +--------+ +------+-------+ + + +--------+ [...] | 1901 | [phone] | [place], [place] [address] | | | | | | [phone] | | | | Facili | | | | | | | ty | | | | | + +--------+ +--------+ + +
--- OUTSIDE RECORDS SUMMARY | ~2019-12-16 | XMS | Encounter Summary ---
Demographics + + + | Address | [address] | | | [place] [address] | + + + | Home Phone | | + + + | Preferred Language | Unknown | + + + | Marital Status | Single | + + + | Jewish Affiliation | Unknown | + + + | Race | Unknown | + + + | Ethnic Group | Unknown | + + + Author + + + | Author | [facility] | | | and [place] | + + + | Organization | [facility] | | | [...] Team Providers + +------+ + | Care Spare Fixer Name | Role | Phone | + +------+ + PCP | Unavailable | + +------+ + Encounter Details +--------+ + + + + | Date | Type | Department | Care Team | Description | +--------+ + + + + | 10/08/ | Hospital | [facility] GENERIC IP | Conversion | Diagnosis unknown | | 2019 | Encounter | CONVERSION DEP [address] | Transaction, | | | | | RYAN KEITH | Provider Unknown | | | | | [place] | | | | | | [phone] | (Fax) | | | | | [phone] | | | +--------+ + + + [...]
[~2019-12-16 11:42] MED LIST changes: +ARNUITY ELLIPT50 MCG NAS; +SUMATRIPTAN SUC25 MG PO
[2019-12-16] MEDS ORDERED: ACID CONTROLLER20 MG PO (12:18)
[2019-12-16] MEDS ORDERED: ALLERGY EYE DRO10 M1 OP (12:19)
[2019-12-16] MEDS ORDERED: METOPROLOL SUCC25 MG PO (12:20)
[2019-12-16] MEDS ORDERED: CRESTOR10 MG PO (12:21)
== END 2019-12-16 12:36 | disposition home or self-care (01) ==
LOC: ED 11:42
DX: S51.811A Laceration without foreign body of right forearm, initial encounter (principal); I10 Essential (primary) hypertension; E11.9 Type 2 diabetes mellitus without complications; Z79.899 Other long term (current) drug therapy; X78.8XXA Intentional self-harm by other sharp object, initial encounter
CPT/HCPCS: 12002; 99282-25